=== PATIENT | male | born 1970 | race Caucasian/White ===

== ENCOUNTER 2020-09-15 11:37 | Day surgery (SDC) | payer BC ==
[2020-09-14 10:35] VITALS: BMI 25.8
[~2020-09-15 11:37] MED LIST: Bupivacaine HCl 0.5%/Epinephrine 1:200,000/PF 30 ml Vial ONE; Dexamethasone 20 MG/5 ML VIAL ONE; Lidocaine 1% PF 5 ML VIAL ONE; Ondansetron PF 4 MG/2 ML Vial ONE; PROPOFOL 200 MG/20 ML VIAL ONE
[2020-09-15] MEDS ORDERED: Bupivacaine PF 0.5% 30 ML VIAL ONE (13:30)
[2020-09-15] MEDS ORDERED: Sodium Chloride 0.9% 10 ML ONE (13:30)
[2020-09-15] MEDS ORDERED: Bacitracin Zinc Ointment 30 gm TUBE ONE (13:30)
[2020-09-15] MEDS ORDERED: Fentanyl 100 MCG/2 ML VIAL ONE ×2 (13:35→13:41)
[2020-09-15] MEDS ORDERED: Midazolam HCl 2 mg/2 ml Vial ONE (13:41)
--- NOTE | 2020-09-15 16:16 | RAD ---
EXAM: 2 views of the right wrist HISTORY: Distal radius fracture FINDINGS/IMPRESSION: Limited intraoperative fluoroscopic views of the right wrist shows the patient i s status post plate and screw fixation of a distal radius fracture. There is normal alignment of the radiocarpal joint.
[2020-09-15] MEDS ORDERED: Ketorolac Tromethamine 30 MG/ML VIAL ONE (16:52)
--- NOTE | 2020-09-15 20:22 | OP ---
DATE OF PROCEDURE: 09/15/2020 PREOPERATIVE DIAGNOSIS: Right distal radius fracture, 3-part. POSTOPERATIVE DIAGNOSES: Right distal radius fracture, 3-part and marked central and subarticular at the junction of the styloid and the Bernstein medial complex. There was comminution and bone graft was indicated. PROCEDURE PERFORMED: 1. C-arm supervision. 2. Minor bone grafting, distal radius fracture. 3. Open internal and internal fixation of right distal radius fracture, 3-part, with 5-hole subarticular and 3-hole down the shaft distal radius volar plate. TOURNIQUET TIME: 60 minutes. ESTIMATED BLOOD LOSS: 10 mL. DESCRIPTION OF PROCEDURE: After successful general endotracheal anesthesia, limb prepped and draped. We then outlined a zigzag incision with a zigzag point away from the area where the primary sensory branch would elevate the thenar region. We exsanguinated the limb, inflated tourniquet to 250 mmHg pressure. We immediately made the incisions, outlined, carried through skin and subcutaneous tissue to reach the flexor carpi radialis radial artery junction. We then released the sheath of the flexor carpi radialis back to its origin insertion and then at the same time, found the pronator quadratus and removed it with a 2 mm rim and reflected it ulnarly. This allowed us visualization of the fracture. We then elevated the fracture fragments and found to be in disarray, so we were able to reduce the fracture, place cancellous bone chips in the subarticular region, and we were able to create appropriate changes. Once we had elevated the fragment and made it level with the articular surface of the ulna, with radiographs showing the same measurements on the uninjured side, we then placed approximately 0.5 teaspoon of bone graft total cortical cancellous pieces that had been soaked under the fracture at the junction of the Bernstein lateral complex. This gave excellent height and we then reduced the fracture, held it with a crossing K-wire obliquely and then we were able to remove the portion restraining other parts of the construct. Once we had placed the 2 K-wires across, they were in appropriate position as well as in sagittal tilt, frontal tilt, and height, we were able to secure the now bone grafted fracture with 2 cross wires. We placed a Synthes low-profile distal radius fracture. A plate that was 2 holes below the fracture and 5 holes in the side of the fracture into position and the plate was placed in a drill measured screw technique. One screw had to be exchanged because it was too short and we now had excellent position in frontal plane, but visualization in the sagittal plane showed it still to be in good position with nice of the screws, made additional measurements and then placed screws in the distal row first before screwing the proximal aspect. This gave anatomic position of the distal radius fracture as seen on the C-arm. The patient then had radiographs confirming the bone graft in excellent position, the subarticular surface in excellent position as well as the construct and we released the tourniquet. No screw length had to be modified or direction. We then were able to take all hemostasis, removed any documented bleeding until the wound was dry. We closed the pronator quadratus back to its fascia underneath the radial artery with a 0 Vicryl in a [id number]. We had excellent circulation and then we were able to close the incision with a running 4-0 Monocryl in a 3-0 nylon interrupted mattress pattern. The patient had left the operating room in a long-arm splint without evidence of anesthetic. Job ID: [id number]
== END 2020-09-15 18:53 | disposition home or self-care (01) ==
LOC: SDC 11:37
PROVIDERS: ATTEND Orthopaedic Surgery Hand Surgery
PROC: 3E0T3BZ Introduction of Anesthetic Agent into Peripheral Nerves and Plexi, Percutaneous Approach (ICD-10-PCS; principal; 2020-09-15)
PROC: 0PSH04Z Reposition Right Radius with Internal Fixation Device, Open Approach (ICD-10-PCS; principal; 2020-09-15)
DX: S52.571A Other intraarticular fracture of lower end of right radius, initial encounter for closed fracture (principal); G89.18 Other acute postprocedural pain; K58.9 Irritable bowel syndrome, unspecified; E78.5 Hyperlipidemia, unspecified; E78.00 Pure hypercholesterolemia, unspecified; Z79.899 Other long term (current) drug therapy; V80.919A Animal-rider injured in unspecified transport accident, initial encounter; Y93.52 Activity, horseback riding
CPT/HCPCS: 76000; C1713; J0690; J1100; J1885; J2250; J2405; J2704; J3010; J3490; S0020